=== PATIENT | female | born 1965 | race Two or more races ===

== ENCOUNTER → 2017-05-13 | Outpatient (CLI) | payer OTHER ==
[~2017-05-13] VITALS: Ht 152.4 cm; Wt 90.7 kg
[~2017-05-13] MED LIST: ASA81 MG PO; CIPRO500 MG PO; CYCLOBENZAPRINE10 MG PO; DICLOFENAC POTA50 MG PO; FLONASE16 GM NS; IOPHEN DM-100 MG/5 M PO; PRILOSEC OTC20 MG PO; TOPROL XL100 M1; TOPROL XL50 M1 PO; TORADOL60 MG IM; TROMBONEX CAPS1 EACH; TROMBONEX CAPSU1 CAP PO; TROPOL XL PO; ZYRTEC10 MG PO
== END | disposition home or self-care (01) ==
LOC: PPHC 15:21
DX: B36.0 Pityriasis versicolor (principal); M54.2 Cervicalgia

== ENCOUNTER → 2017-07-29 | Outpatient (CLI) | payer OTHER | END | disposition home or self-care (01) | LOC: PPHC 15:01 | DX: R04.0 Epistaxis (principal) ==

== ENCOUNTER 2017-08-23 07:22 | Outpatient (CLI) | payer OTHER | END 2017-08-23 07:24 | disposition home or self-care (01) | LOC: LAB 07:22 | DX: I10 Essential (primary) hypertension (principal); E78.5 Hyperlipidemia, unspecified; R04.0 Epistaxis ==

== ENCOUNTER 2017-11-22 09:12 | Outpatient (CLI) | payer OTHER | END 2017-11-22 09:21 | disposition home or self-care (01) | LOC: LAB 09:12 | DX: Z11.3 Encounter for screening for infections with a predominantly sexual mode of transmission (principal) ==

== ENCOUNTER 2018-07-06 09:37 | Outpatient (CLI) | payer OTHER | END 2018-07-06 15:00 | disposition home or self-care (01) | LOC: LAB 09:37 | DX: I10 Essential (primary) hypertension (principal); E78.49 Other hyperlipidemia; R10.9 Unspecified abdominal pain ==

== ENCOUNTER 2018-07-20 08:24 | Outpatient (CLI) | payer OTHER | END 2018-07-20 08:39 | disposition home or self-care (01) | LOC: TOM 08:24 | DX: R10.9 Unspecified abdominal pain (principal) ==

== ENCOUNTER 2018-09-13 10:32 | Emergency (ER) | payer OTHER ==
[~2018-09-13] VITALS: Ht 170.2 cm; Wt 95.3 kg
== END 2018-09-13 17:18 | disposition home or self-care (01) ==
LOC: ER 10:32
DX: I87.2 Venous insufficiency (chronic) (peripheral) (principal); M79.661 Pain in right lower leg

== ENCOUNTER 2018-12-16 10:30 | Outpatient (CLI) | payer OTHER | END 2018-12-16 10:35 | disposition home or self-care (01) | LOC: LAB 10:30 | DX: E78.49 Other hyperlipidemia (principal); Z00.00 Encounter for general adult medical examination without abnormal findings; E55.9 Vitamin D deficiency, unspecified; R42 Dizziness and giddiness ==

== ENCOUNTER 2019-02-16 09:19 | Outpatient (CLI) | payer OTHER ==
[~2019-02-16] VITALS: Ht 152.4 cm; Wt 87.1 kg
== END 2019-02-16 12:37 | disposition home or self-care (01) ==
LOC: OFIC 805 09:19
DX: J31.0 Chronic rhinitis (principal); J32.8 Other chronic sinusitis; H60.63 Unspecified chronic otitis externa, bilateral; M26.69 Other specified disorders of temporomandibular joint; M26.4 Malocclusion, unspecified

== ENCOUNTER 2019-03-24 09:55 | Outpatient (CLI) | payer OTHER | END 2019-03-24 15:07 | disposition home or self-care (01) | LOC: LAB 09:55 | DX: E78.49 Other hyperlipidemia (principal); R42 Dizziness and giddiness; Z00.00 Encounter for general adult medical examination without abnormal findings; E55.9 Vitamin D deficiency, unspecified; I10 Essential (primary) hypertension ==

== ENCOUNTER 2019-03-30 06:05 | Outpatient (CLI) | payer OTHER | END 2019-03-30 14:41 | disposition home or self-care (01) | LOC: LAB 06:05 | DX: D69.49 Other primary thrombocytopenia (principal) ==

== ENCOUNTER 2019-07-21 08:58 | Outpatient (CLI) | payer OTHER ==
[2019-07-24] MEDS ORDERED: CALTRATE 600+D1 EAC1 PO (11:18)
[2019-07-24] MEDS ORDERED: TENTRAL PO (11:20)
[2019-07-24] MEDS ORDERED: PRILO PO (11:21)
[2019-07-24] MEDS ORDERED: VITAMIN C500 M6 (11:23)
[2019-07-24] MEDS ORDERED: VITAMIN D400 UNI2 (11:24)
== END 2019-07-21 09:05 | disposition home or self-care (01) ==
LOC: LAB 08:58
DX: K73.2 Chronic active hepatitis, not elsewhere classified (principal)

== ENCOUNTER → 2019-07-22 06:00 | Outpatient (CLI) | payer OTHER ==
[~2019-07-22 06:00] MED LIST changes: +CALTRATE 600+D1 EAC1 PO; +PRILO PO; +TENTRAL PO; +VITAMIN C500 M6; +VITAMIN D400 UNI2
== END | disposition home or self-care (01) ==
LOC: LAB 06:00 → CIR.AMB 07-24 08:46 → EDSTATUS 08-01 10:42 → CIR.AMB 08-01 10:43
DX: K43.2 Incisional hernia without obstruction or gangrene (principal); Z01.818 Encounter for other preprocedural examination

== ENCOUNTER 2019-07-27 06:48 | Outpatient (CLI) | payer OTHER | END 2019-07-27 06:50 | disposition home or self-care (01) | LOC: LAB 06:48 | DX: E78.49 Other hyperlipidemia (principal); Z01.812 Encounter for preprocedural laboratory examination ==

== ENCOUNTER → 2019-10-04 08:23 | Outpatient (CLI) | payer OTHER | END | disposition home or self-care (01) | LOC: LAB 10-03 14:32 | DX: E78.2 Mixed hyperlipidemia (principal); Z00.01 Encounter for general adult medical examination with abnormal findings; R53.81 Other malaise ==

== ENCOUNTER → 2019-12-07 10:12 | Outpatient (CLI) | payer OTHER | END | disposition home or self-care (01) | LOC: LAB 10:12 | DX: R79.1 Abnormal coagulation profile (principal); E78.2 Mixed hyperlipidemia; Z00.8 Encounter for other general examination; Z11.3 Encounter for screening for infections with a predominantly sexual mode of transmission ==

== ENCOUNTER → 2020-01-03 08:19 | Outpatient (CLI) | payer OTHER | END | disposition home or self-care (01) | LOC: LAB 08:19 | PROVIDERS: ATTEND General Practice | DX: R05 Cough (principal); R06.2 Wheezing; E55.9 Vitamin D deficiency, unspecified; R50.9 Fever, unspecified; E11.9 Type 2 diabetes mellitus without complications ==

== ENCOUNTER 2020-01-29 01:00 | Outpatient (CLI) | payer OTHER | END 2020-01-29 15:00 | disposition home or self-care (01) | LOC: PPH VACUNA 01:00 | DX: Z23 Encounter for immunization (principal) ==

== ENCOUNTER → 2020-02-01 10:05 | Outpatient (CLI) | payer OTHER | END | disposition home or self-care (01) | LOC: LAB 10:05 | DX: Z20.828 Contact with and (suspected) exposure to other viral communicable diseases (principal) ==

== ENCOUNTER 2020-02-04 14:24 | Outpatient (CLI) | payer OTHER | END 2020-02-04 17:30 | disposition home or self-care (01) | LOC: OFIC 805 14:24 | PROVIDERS: ATTEND Otolaryngology Otology & Neurotology | DX: J31.0 Chronic rhinitis (principal); J34.89 Other specified disorders of nose and nasal sinuses; J06.0 Acute laryngopharyngitis ==

== ENCOUNTER 2020-03-05 06:00 | Day surgery (SDC) | payer OTHER ==
[2020-03-05] MEDS ORDERED: COLACE100 MG PO (10:38)
[2020-03-05] MEDS ORDERED: NEURONTIN600 M1 PO (10:38)
[2020-03-05] MEDS ORDERED: ULTRACET PO (10:39)
== END 2020-03-05 14:05 | disposition home or self-care (01) ==
LOC: CIR.AMB 06:00
PROVIDERS: ATTEND Surgery
DX: K43.0 Incisional hernia with obstruction, without gangrene (principal); Z20.828 Contact with and (suspected) exposure to other viral communicable diseases

== ENCOUNTER → 2020-04-10 10:37 | Outpatient (CLI) | payer OTHER ==
[~2020-04-10 10:37] MED LIST changes: +COLACE100 MG PO; +NEURONTIN600 M1 PO; +ULTRACET PO
== END | disposition home or self-care (01) ==
LOC: LAB 10:37
PROVIDERS: ATTEND General Practice
DX: Z20.828 Contact with and (suspected) exposure to other viral communicable diseases (principal)

== ENCOUNTER 2020-04-14 11:53 | Outpatient (CLI) | payer OTHER | END 2020-04-14 13:28 | disposition home or self-care (01) | LOC: NUCLEAR 11:53 | PROVIDERS: ATTEND Internal Medicine | DX: R60.0 Localized edema (principal); I87.2 Venous insufficiency (chronic) (peripheral) ==

== ENCOUNTER 2020-05-01 11:53 | Outpatient (CLI) | payer OTHER | END 2020-05-01 18:00 | disposition home or self-care (01) | LOC: PPH VACUNA 11:53 | DX: Z23 Encounter for immunization (principal) ==

== ENCOUNTER 2020-08-12 07:28 | Outpatient (CLI) | payer OTHER | END 2020-08-12 13:40 | disposition home or self-care (01) | LOC: LAB 07:28 | PROVIDERS: ATTEND Surgery | DX: R10.84 Generalized abdominal pain (principal); Z01.818 Encounter for other preprocedural examination ==

== ENCOUNTER → 2020-12-11 | Outpatient (CLI) | payer OTHER | END | disposition home or self-care (01) | LOC: LAB 12:01 | PROVIDERS: ATTEND Emergency Medicine Pediatric Emergency Medicine | DX: Z03.818 Encounter for observation for suspected exposure to other biological agents ruled out (principal) ==

== ENCOUNTER → 2020-12-26 15:38 | Outpatient (CLI) | payer OTHER | END | disposition home or self-care (01) | LOC: LAB 15:38 | PROVIDERS: ATTEND Emergency Medicine Pediatric Emergency Medicine | DX: K59.04 Chronic idiopathic constipation (principal); R14.0 Abdominal distension (gaseous); Z80.0 Family history of malignant neoplasm of digestive organs ==

== ENCOUNTER 2021-01-01 09:11 | Outpatient (CLI) | payer OTHER | END 2021-01-01 09:17 | disposition home or self-care (01) | LOC: TOM 09:11 | PROVIDERS: ATTEND Surgery | DX: K59.09 Other constipation (principal); K59.04 Chronic idiopathic constipation; R14.0 Abdominal distension (gaseous); Z80.0 Family history of malignant neoplasm of digestive organs ==

== ENCOUNTER 2021-01-06 07:12 | Day surgery (SDC) | payer OTHER | END 2021-01-06 11:00 | disposition home or self-care (01) | LOC: AMB-ENDOS 07:12 | PROVIDERS: ATTEND Surgery | DX: D12.4 Benign neoplasm of descending colon (principal); K64.8 Other hemorrhoids; Z20.822 Contact with and (suspected) exposure to COVID-19 ==

== ENCOUNTER → 2021-02-10 08:00 | Outpatient (CLI) | payer OTHER | END | disposition home or self-care (01) | LOC: PPH VACUNA 08:00 | PROVIDERS: ATTEND Emergency Medicine Pediatric Emergency Medicine | DX: Z23 Encounter for immunization (principal) ==

== ENCOUNTER → 2021-03-06 08:30 | Outpatient (CLI) | payer OTHER | END | disposition home or self-care (01) | LOC: LAB 08:30 | PROVIDERS: ATTEND Anesthesiology | DX: N39.0 Urinary tract infection, site not specified (principal) ==

== ENCOUNTER 2021-03-10 07:46 | Outpatient (CLI) | payer OTHER | END 2021-03-10 07:50 | disposition home or self-care (01) | LOC: SONOGRAMA 07:46 → MAMO-SONO 10:00 | PROVIDERS: ATTEND Urology | DX: N20.1 Calculus of ureter (principal); R31.1 Benign essential microscopic hematuria ==

== ENCOUNTER 2021-04-15 08:08 | Outpatient (CLI) | payer OTHER | END 2021-04-15 15:00 | disposition home or self-care (01) | LOC: LAB 08:08 | PROVIDERS: ATTEND Anesthesiology | DX: Z20.822 Contact with and (suspected) exposure to COVID-19 (principal) ==

== ENCOUNTER 2021-07-01 08:00 | Outpatient (CLI) | payer OTHER | END 2021-07-01 08:30 | disposition home or self-care (01) | LOC: PPH VACUNA 08:00 | PROVIDERS: ATTEND Emergency Medicine Pediatric Emergency Medicine | DX: Z23 Encounter for immunization (principal) ==

== ENCOUNTER 2021-07-10 10:15 | Outpatient (CLI) | payer OTHER | END 2021-07-10 10:16 | disposition home or self-care (01) | LOC: MAMO-SONO 10:15 | PROVIDERS: ATTEND General Practice | DX: N64.4 Mastodynia (principal) ==

== ENCOUNTER 2021-08-25 09:47 | Outpatient (CLI) | payer OTHER | END 2021-08-25 09:52 | disposition home or self-care (01) | LOC: RAD 09:47 | PROVIDERS: ATTEND General Practice | DX: R05.9 Cough, unspecified (principal) ==

== ENCOUNTER 2021-09-07 09:26 | Outpatient (CLI) | payer OTHER | END 2021-09-07 09:27 | disposition home or self-care (01) | LOC: LAB 09:26 | PROVIDERS: ATTEND General Practice | DX: Z20.822 Contact with and (suspected) exposure to COVID-19 (principal); R05.9 Cough, unspecified; R50.9 Fever, unspecified; R06.02 Shortness of breath ==

== ENCOUNTER 2021-09-09 10:48 | Outpatient (CLI) | payer OTHER | END 2021-09-09 11:10 | disposition home or self-care (01) | LOC: ASH CLINIC 10:48 | PROVIDERS: ATTEND General Practice | DX: Z23 Encounter for immunization (principal); U07.1 COVID-19 ==

== ENCOUNTER 2021-11-03 12:22 | Outpatient (CLI) | payer OTHER | END 2021-11-03 15:22 | disposition home or self-care (01) | LOC: LAB 12:22 | PROVIDERS: ATTEND General Practice | DX: E03.9 Hypothyroidism, unspecified (principal) ==

== ENCOUNTER 2021-11-05 12:22 | Outpatient (CLI) | payer OTHER | END 2021-11-05 12:28 | disposition home or self-care (01) | LOC: SONOGRAMA 12:22 | PROVIDERS: ATTEND General Practice | DX: E04.1 Nontoxic single thyroid nodule (principal); E04.9 Nontoxic goiter, unspecified ==

== ENCOUNTER 2022-01-19 08:00 | Outpatient (CLI) | payer OTHER | END 2022-01-19 08:05 | disposition home or self-care (01) | LOC: PPH VACUNA 08:00 | PROVIDERS: ATTEND Emergency Medicine Pediatric Emergency Medicine | DX: Z23 Encounter for immunization (principal) ==

== ENCOUNTER 2022-03-31 07:21 | Outpatient (CLI) | payer OTHER | END 2022-03-31 07:22 | disposition home or self-care (01) | LOC: LAB 07:21 | PROVIDERS: ATTEND General Practice | DX: Z00.00 Encounter for general adult medical examination without abnormal findings (principal); E78.5 Hyperlipidemia, unspecified; R10.9 Unspecified abdominal pain; E55.9 Vitamin D deficiency, unspecified; N39.0 Urinary tract infection, site not specified; R42 Dizziness and giddiness ==

== ENCOUNTER 2022-04-12 09:04 | Outpatient (CLI) | payer OTHER | END 2022-04-12 09:05 | disposition home or self-care (01) | LOC: TOM 09:04 | PROVIDERS: ATTEND General Practice | DX: R10.9 Unspecified abdominal pain (principal) ==

== ENCOUNTER 2022-06-18 14:49 | Outpatient (CLI) | payer OTHER | END 2022-06-18 14:54 | disposition home or self-care (01) | LOC: RAD 14:49 | PROVIDERS: ATTEND Anesthesiology | DX: M25.561 Pain in right knee (principal) ==

== ENCOUNTER 2022-07-13 08:35 | Outpatient (CLI) | payer OTHER | END 2022-07-13 09:00 | disposition home or self-care (01) | LOC: MRI 08:35 | PROVIDERS: ATTEND Orthopaedic Surgery | DX: M25.561 Pain in right knee (principal) | CPT/HCPCS: 73721 ==

== ENCOUNTER 2022-10-18 06:00 | Day surgery (SDC) | payer OTHER ==
[~2022-10-18] VITALS: Ht 167.6 cm; Wt 83.9 kg
[2022-10-18] MEDS ORDERED: BACTRIM DS TAB1 EACH PO (08:51)
[2022-10-18] MEDS ORDERED: TRAM1TAB98 PO (08:51)
== END 2022-10-18 10:55 | disposition home or self-care (01) ==
LOC: CIR.AMB 06:00
PROVIDERS: ATTEND Orthopaedic Surgery Sports Medicine
DX: S83.241A Other tear of medial meniscus, current injury, right knee, initial encounter (principal); M17.11 Unilateral primary osteoarthritis, right knee; M25.561 Pain in right knee; M65.9 Synovitis and tenosynovitis, unspecified; Z88.0 Allergy status to penicillin

== ENCOUNTER 2023-02-02 09:14 | Outpatient (CLI) | payer OTHER ==
[~2023-02-02 09:14] MED LIST changes: +BACTRIM DS TAB1 EACH PO; +TRAM1TAB98 PO
== END 2023-02-02 09:52 | disposition home or self-care (01) ==
LOC: LAB 09:14
PROVIDERS: ATTEND General Practice
DX: Z00.00 Encounter for general adult medical examination without abnormal findings (principal); E78.5 Hyperlipidemia, unspecified; E55.9 Vitamin D deficiency, unspecified; N39.0 Urinary tract infection, site not specified; R42 Dizziness and giddiness; Z88.0 Allergy status to penicillin; Z88.5 Allergy status to narcotic agent

== ENCOUNTER → 2023-02-03 14:50 | Outpatient (CLI) | payer OTHER ==
[2023-02-03 08:25] LABS: HEMATOCRIT 40.2 % (36.0-45.00); MEAN CELL VOLUME 88.1 fL (80.00-100.00); MEAN CORPUSCULAR HEMOGLOBIN 28.6 pg (27.00-32.0); MEAN CORPUSCULAR HGB CONC 32.5 g/dl (32.0-36.0); PLATELET COUNT 303 K/uL (150-450); RED BLOOD COUNT 4.56 M/uL (4.00-6.00); RED CELL DISTRIBUTION WIDTH 13.6 % (11.5-14.5)
[2023-02-03 09:09] LABS: ALBUMIN 3.9 gm/dL (3.4-5.0); BILIRUBIN TOTAL 0.56 mg/dL (0.3-1.2); BILIRUBIN,CONJUGATED 0.14 mg/dL (0.0-0.2); CALCIUM 9.2 mg/dL (8.5-10.1); CREATININE SERUM 0.58 mg/dL (0.55-1.02); GFR 107.93; GLOBULINA 3.6 G/DL (2.4-3.5); POTASSIUM 3.86 mEq/L (3.5-5.1); TOTAL PROTEIN 7.5 gm/dL (6.4-8.2)
[2023-02-03 15:06] LABS: VITAMIN D3 25 HYDROXY 54.24 ng/ml (30-120)
== END | disposition home or self-care (01) ==
LOC: LAB 14:50
PROVIDERS: ATTEND General Practice
DX: E78.5 Hyperlipidemia, unspecified (principal); E55.9 Vitamin D deficiency, unspecified; N39.0 Urinary tract infection, site not specified; R42 Dizziness and giddiness; Z00.00 Encounter for general adult medical examination without abnormal findings

== ENCOUNTER 2023-12-13 12:20 | Outpatient (CLI) | payer OTHER ==
[2023-12-13 13:36] LABS: URINE APPEARANCE Clear; URINE BILIRRUBIN Negative (NEGATIVE); URINE BLOOD Negative; URINE COLOR Yellow; URINE GLUCOSE Negative (NEGATIVE); URINE KETONE Negative (NEGATIVE); URINE LEUKOCYTE Negative; URINE NITRATE Negative; URINE PROTEIN Negative (NEGATIVE); URINE UROBILINOGEN 0.2 E.U./dl
[2023-12-13 13:40] LABS: URINE BACTERIA 311.2 uL (0.0-1933); URINE EPITHELIAL CELLS 17.7 uL (0.0-38.8); URINE RBC 13.2 uL (0.0-20.8); URINE WBC 6.3 uL (0.0-23.2)
[2023-12-13 13:53] LABS: URINE CAST 0.61 uL (0.0-1.40)
== END 2023-12-13 12:24 | disposition home or self-care (01) ==
LOC: LAB 12:20
PROVIDERS: ATTEND General Practice
DX: N39.0 Urinary tract infection, site not specified (principal)

== ENCOUNTER 2024-01-26 15:01 | Outpatient (CLI) | payer OTHER | END 2024-01-26 15:08 | disposition home or self-care (01) | LOC: MAMO-SONO 15:01 | PROVIDERS: ATTEND Student in an Organized Health Care Education/Training Program | DX: N60.11 Diffuse cystic mastopathy of right breast (principal); N60.12 Diffuse cystic mastopathy of left breast ==

== ENCOUNTER 2024-02-16 09:40 | Outpatient (CLI) | payer OTHER | END 2024-02-16 10:00 | disposition home or self-care (01) | LOC: PPH VACUNA 09:40 | PROVIDERS: ATTEND Emergency Medicine Pediatric Emergency Medicine | DX: Z23 Encounter for immunization (principal) ==

== ENCOUNTER 2024-11-13 12:45 | Outpatient (CLI) | payer OTHER ==
[2024-11-15 09:08] LABS: HEPATITIS A ANTIBODY IGG Negative (Negative); HEPATITIS B SURFACE ANTIBODY Reactive (.); HEPATITIS C VIRUS ANTIBODY Non Reactive (Non Reactive)
== END 2024-11-13 12:50 | disposition home or self-care (01) ==
LOC: LAB 12:45
DX: A64 Unspecified sexually transmitted disease (principal); B19.9 Unspecified viral hepatitis without hepatic coma

== ENCOUNTER 2024-11-27 10:36 | Outpatient (CLI) | payer OTHER ==
[2024-11-27 10:52] LABS: BASO % 0.4 % (0.1-1.2); EOS # 0.00 (0.04-0.54); EOS % 0.0 % (0.7-7.0); LYMPH # 0.73 (1.18-3.74); LYMPH % 13.0 % (19.3-53.1); MEAN PLATELET VOLUME 10.50 fl (9.4-12.4); MONO # 0.47 (0.24-0.82); MONO % 8.4 % (4.7-12.5); NEUT # 4.37 (1.56-6.13); NEUT % 77.8 % (34.0-71.1); RED CELL DISTRIBUTION WIDTH 13.9 % (11.6-14.4)
[2024-11-27 11:07] LABS: COVID-19 AG NEGATIVE (NEGATIVE)
[2024-11-27 11:30] LABS: MYCOPLASMA PNEUMONIAE IGM NON REACTIVE (NO REACTIVE)
== END 2024-11-27 13:01 | disposition home or self-care (01) ==
LOC: LAB 10:36
PROVIDERS: ATTEND General Practice
DX: R05.9 Cough, unspecified (principal); R50.9 Fever, unspecified; Z11.52 Encounter for screening for COVID-19

== ENCOUNTER 2025-03-12 10:00 | Outpatient (CLI) | payer OTHER | END 2025-03-12 10:10 | disposition home or self-care (01) | LOC: PPH VACUNA 10:00 | PROVIDERS: ATTEND Emergency Medicine Pediatric Emergency Medicine | DX: Z23 Encounter for immunization (principal) ==

== ENCOUNTER 2025-03-12 10:51 | Outpatient (CLI) | payer OTHER | END 2025-03-12 10:53 | disposition home or self-care (01) | LOC: MAMO-SONO 10:51 | PROVIDERS: ATTEND Surgery | DX: N60.11 Diffuse cystic mastopathy of right breast (principal); N60.12 Diffuse cystic mastopathy of left breast ==

== ENCOUNTER 2025-04-08 11:46 | Outpatient (CLI) | payer OTHER | END 2025-04-08 11:50 | disposition home or self-care (01) | LOC: RAD 11:46 | PROVIDERS: ATTEND Internal Medicine Pulmonary Disease | DX: J45.21 Mild intermittent asthma with (acute) exacerbation (principal) ==